=== PATIENT | female | born 1985 | race Caucasian/White ===

== ENCOUNTER 2016-11-06 06:50 | Day surgery (SDC) | payer OTHER ==
[~2016-11-06 06:50] MED LIST: RINGERS SOLUTION,LACTATED 1,000 ML IV PRN
[2016-11-06] MEDS ORDERED: RINGERS SOLUTION,LACTATED 1,000 ML IV ONE (07:28)
[2016-11-06] MEDS ORDERED: LIDOCAINE HCL/EPINEPHRINE 50 ML VIAL IJ ONE (08:32)
--- NOTE | 2016-11-06 09:45 | OR ---
Operative Report - Dictated Report Narrative: INDICATION: 30 year old female with chronic pelvic pain, dyspareunia, menorrhagia, dysmenorrhea, and intrauterine mass presents for removal of polyp/ fibroid and diagnosis of pelvic pain. PREOPERATIVE DIAGNOSIS: Chronic pelvic pain, dyspareunia, menorrhagia, dysmenorrhea, intrauterine mass POSTOPERATIVE DIAGNOSIS: Same with uterine polyp OPERATION: Diagnostic laparoscopy with excisional biopsy of probable endometriosis, diagnostic hysteroscopy, dilation curettage, polypectomy SURGEON: Marco A Forrest D.O. GAS LINE REPAIRER: None ANESTHESIA: General ESTIMATED BLOOD LOSS: Minimal FLUID REPLACEMENT: 700 mL URINE OUTPUT: Not measured FINDINGS: Blood-tinged peritoneum of the pelvic cavity, clear vesicle lesions and scarring noted on the peritoneum of the right uterosacral ligament and right ovarian fossa, filmy tubal ovarian adhesions to the uterosacral ligament region, questionable punctate red lesions on the left ovarian fossa, lima at the distal end of the cecum consistent with history of appendectomy, small paratubal cysts on the right fallopian tube, normal-appearing left fallopian tube and right and left ovaries. Intrauterine cavity was very wide, sounded to 8 cm in depth, small (<1cm) endometrial polyps at the 12 and 7 o'clock position SPECIMEN(S): 1. Peritoneum of right uterosacral ligament. 2. Peritoneum of right ovarian fossa. 3. Peritoneum of left ovarian fossa. 4. Endometrial curettings with polyps DRAINS: none TECHNIQUE: The patient was taken to the operating room and placed in dorsal lithotomy position after adequate general anesthesia was obtained. The anterior lip of the cervix was grasped with a long Allis clamp and a Valchev manipulator was inserted into the cervical canal and attached to the Allis clamp as a means to manipulate the uterus. The bladder was drained prior to patient entering the OR. Gloves were changed and attention was turned to the abdomen where the umbilicus and suprapubic region were injected with a 1% lidocaine epinephrine solution through the layers of the abdomen. A scalpel was used to score the skin and a 5 mm non-bladed trocar was inserted via direct technique under direct visualization. Pneumoperitoneum was created with CO2 gas. A 5 mm non-bladed trocar was inserted suprapubically and in the left lower quadrant in a similar fashion. Through these 3 ports the surgery was carried out with findings as noted above. The peritoneum of the posterior uterosacral ligament was tented from the underlying structures and excised using the Thunderbeat. The peritoneum of the right ovarian fossa and left ovarian fossa were removed in a similar fashion, taking care to avoid injury to underlying structures. Excellent hemostasis was noted. The CO2 gas was removed from the abdominal cavity. Trochars were removed under direct visualization. The skin of all incisions was closed with 4-0 Monocryl and Dermabond. The Valchev manipulator was removed from the cervix and a paracervical block was given using 15 mL 1% lidocaine with epinephrine. A 5 mm diagnostic hysteroscope was inserted through the cervical canal into the uterine cavity with findings as noted above. Scope was removed and sharp curettage was performed using a #3 curette. A moderate amount of tissue and polyps were removed . The hysteroscope was reinserted to assure thorough sampling of the uterine cavity and removal of polyps. Instruments were removed from the cervix and vagina. Sponge, lap, instrument, and needle count were correct x 2. DISPOSITION: The patient was awakened and transferred to post anesthesia care unit in good condition.
[2016-11-06] MEDS ORDERED: MORPHINE SULFATE 2 MG/ML DISP.SYRIN IV PRN (10:12)
[2016-11-06] MEDS ORDERED: oxyCODONE HCL/ACETAMINOPHEN 1 TAB TABLET PO PRN (10:15)
[2016-11-06] MEDS ORDERED: IBUPROFEN 800 MG TABLET PO PRN (10:16)
[2016-11-06 11:06] VITALS: BP 99/97
== END 2016-11-06 06:51 | disposition home or self-care (01) ==
LOC: AMB 06:50
PROVIDERS: ATTEND Obstetrics & Gynecology
PROC: 0UB24ZX Excision of Bilateral Ovaries, Percutaneous Endoscopic Approach, Diagnostic (ICD-10-PCS; 2016-11-06)
PROC: 0UB44ZX Excision of Uterine Supporting Structure, Percutaneous Endoscopic Approach, Diagnostic (ICD-10-PCS; 2016-11-06)
PROC: 0UB98ZX Excision of Uterus, Via Natural or Artificial Opening Endoscopic, Diagnostic (ICD-10-PCS; principal; 2016-11-06 08:00)
PROC: 0UDB8ZX Extraction of Endometrium, Via Natural or Artificial Opening Endoscopic, Diagnostic (ICD-10-PCS; 2016-11-06 08:00)
DX: N84.0 Polyp of corpus uteri (principal); N80.1 Endometriosis of ovary; N92.0 Excessive and frequent menstruation with regular cycle; N94.6 Dysmenorrhea, unspecified; D50.9 Iron deficiency anemia, unspecified; F32.9 Major depressive disorder, single episode, unspecified; F41.9 Anxiety disorder, unspecified; F17.200 Nicotine dependence, unspecified, uncomplicated; Z68.26 Body mass index [BMI] 26.0-26.9, adult

== ENCOUNTER 2017-04-12 13:17 | Emergency (ER) | payer OTHER ==
[2017-04-12] MEDS ORDERED: METHYLPREDNISOLONE SOD SUCC/PF 40 MG/ML VIAL IV ONE (13:57)
[2017-04-12] MEDS ORDERED: KETOROLAC TROMETHAMINE 30 MG/ML VIAL IV ONE (13:57)
[2017-04-12] MEDS ORDERED: ORPHENADRINE CITRATE 30 MG/ML VIAL IV ONE (13:57)
[2017-04-12] MEDS ORDERED: ORPHENADRINE CITRATE 30 MG/ML VIAL ONE (14:05)
[2017-04-12] MEDS ORDERED: KETOROLAC TROMETHAMINE 30 MG/ML VIAL ONE (14:05)
[2017-04-12] MEDS ORDERED: METHYLPREDNISOLONE SOD SUCC/PF 40 MG/ML VIAL ONE (14:05)
--- NOTE | 2017-04-12 14:23 | ERNOTE ---
Headache ER HPI - General Presenting Symptoms: headache, "migraine" - questionable Time Seen by Provider: 04/12/17 13:40 Source: patient Exam Limitations: no limitations - Immun/Allergies/Home Medications Immunizations: IMMUNIZATION HX Immunizations Up to Date Yes History of Influenza Vaccine Yes Hx Pneumococcal Vaccination More Information Required Allergies/Adverse Reactions: Allergies No Known Allergies Allergy (Verified 11/06/16 07:13) Home Medications: HOME MEDICATIONS Diphenhydramine HCl [Benadryl Allergy] 12.5 mg PO HS 11/05/16 [Last Taken Unknown] LORazepam [Ativan] 0.5 mg PO BID PRN 11/05/16 [Last Taken Unknown] Levothyroxine Sodium [Synthroid] 25 mcg PO DAILY 11/05/16 [Last Taken Unknown] Lisdexamfetamine Dimesylate [Vyvanse] 30 mg PO DAILY 11/05/16 [Last Taken Unknown] oxyCODONE HCL/ACETAMINOPHEN [Percocet 5 MG/325 MG] 1 tab PO Q4H PRN #20 tablet 11/06/16 [Last Taken Unknown] Sertraline HCl [Zoloft] 50 mg PO DAILY 04/12/17 [Last Taken Unknown] - Pain Pain Score: 6 - History of Present Illness Narrative: Patient presents with pain on the right side of the neck at the upper cervical area that wraps over the top of the right ear Timing of Headache: gradual Quality: Present: achy Severity Maximum: Present: moderate Severity-Currently: Present: moderate Headache frequency: Present: occasional headaches Associated Symptoms: Reports: nausea - mild Exacerbated by:: Reports: movement Review of Systems - Review of Systems Constitutional: Present: See HPI EYE: Present: no symptoms reported ENT: Present: no symptoms reported Respiratory: Present: no symptoms reported Cardiology: Present: no symptoms reported Gastrointestinal/Abdominal: Present: no symptoms reported Genitourinary: Present: no symptoms reported Musculoskeletal: Present: no symptoms reported Skin: Present: no symptoms reported Neurological: Present: headache Endocrine: Present: no symptoms reported Hematologic/Lymphatic: Present: no symptoms reported Psych: Present: no symptoms reported - Patient's Past Medical History Patient History - Medical: ADHD, Anxiety, Depression, Hypothyroidism, Migraines , Other Patient History - Cardiac/Respiratory: No pertinent hx Patient History - Cancer: No Hx of Cancer Patient History - Surgical Procedures: Appendectomy, Cholecystectomy, Other Patient History - Other: None LMP (females 10-50): last week - Family History Mother Family History - Medical: Anxiety, Depression, Hypothyroidism Family History - Cardiac/Respiratory: History Unknown Family History - Cancer: No pertinent family hx Father Family History - Medical: Other Family History - Cardiac/Respiratory: Hypertension, Hyperlipidemia Family History - Cancer: No pertinent family hx - Social History Living Situations: spouse Abuse History: No History of abuse Psych History: Current tx/ever been on anti-depressants or anti-anxiety meds Smoking Status: Current every day smoker Have you smoked in the past 12 months: Yes Do you dip or chew tobacco: No Alcohol Use: none Drug Use: none - Immunizations Immunizations Up to Date: Yes Hx Pneumococcal Vaccination: More Information Required to Determine History of Influenza Vaccine: Yes Physical Exam - Physical Exam General Appearance: Present: wd/wn, alert, moderate distress Head Exam: Present: normal inspection Eye Exam: Normal inspection: bilateral, PERRL: bilateral Ears, Nose, Throat: Present: normal ENT inspection, normal pharynx Neck: Present: tender lateral - right upper cervical area at the level of proximally C2 Respiratory: Present: no respiratory distress, normal breath sounds, no accessory muscle use, chest nontender, lungs clear Cardiovascular/Chest: Present: regular rate, rhythm, no murmur, normal peripheral pulses Gastrointestinal/Abdominal: Present: normal bowel sounds, nontender, nondistended, soft, no organomegaly Rectal Exam: Present: deferred Back Exam: Present: normal inspection, normal range of motion, muscle spasm - right cervical paraspinal area Extremity Exam: Present: normal inspection, non-tender, no edema, normal range of motion Neurological Exam: Present: alert, oriented, normal mood/affect Skin Exam: Present: normal color, warm/dry Lymphatic Exam: Present: no adenopathy ED Progress - Vital Signs Patient's Vital Signs:: I have reviewed the patient's vital signs. Vital Signs: Vital Signs 04/12/17 13:31 Temperature 36.2 C L Pulse Rate 64 Respiratory 14 Rate Blood Pressure 120/69 O2 Sat by Pulse 100 Oximetry - Progress/Reassessment Chief Complaint: Headache Progress:: Improved Plan - Plan Plan: She states her headache is gone and feels back to baseline. She'll be discharged and she'll follow-up with her family physician Departure Clinical Impression: Occipital headache - Departure Disposition: Home self-care Condition: Good Instructions: Tension Headache, [id number] Referrals: Sayda Stout DO [Primary Care Provider] -
[2017-04-12 15:19] VITALS: BP 108/64
== END 2017-04-12 15:00 | disposition home or self-care (01) ==
LOC: ER 13:17
DX: R51 Headache (principal); E03.9 Hypothyroidism, unspecified; F41.9 Anxiety disorder, unspecified; F90.9 Attention-deficit hyperactivity disorder, unspecified type; F17.200 Nicotine dependence, unspecified, uncomplicated